=== PATIENT | female | born 2000 | race African-American/Black ===

== ENCOUNTER 2024-10-08 14:58 | Day surgery (SDC) | payer OTHER ==
[2024-10-08 15:21] VITALS: BMI 38.2
[2024-10-08 16:42] LABS: Fetal Membranes Rupture No Membranes Rupture (No Rupture)
== END 2024-10-08 18:52 | disposition home or self-care (01) ==
LOC: CSHLD/OP 14:58
PROVIDERS: ATTEND Obstetrics & Gynecology
DX: Z03.71 Encounter for suspected problem with amniotic cavity and membrane ruled out (principal); O99.013 Anemia complicating pregnancy, third trimester; O99.323 Drug use complicating pregnancy, third trimester; F12.10 Cannabis abuse, uncomplicated; Z79.899 Other long term (current) drug therapy; Z3A.37 37 weeks gestation of pregnancy
CPT/HCPCS: 84112; 99282

== ENCOUNTER 2024-10-23 05:20 | Inpatient (IN) | payer OTHER ==
[2024-10-23] MEDS ORDERED: NS w/ Oxytocin 30 units 500 ML BAG ONE (07:11)
[2024-10-23] MEDS ORDERED: fentaNYL 50 mcg/mL 1 mL Vial ONE (12:11)
[2024-10-23] MEDS ORDERED: Ondansetron PF 4 MG/2 ML Vial ONE ×2 (12:11→21:41)
[2024-10-23] MEDS ORDERED: fentaNYL/Ropivacaine Epidural 100 ML ONE (15:27)
[2024-10-23] MEDS ORDERED: Ketorolac Tromethamine 30 MG (1 mL) VIAL IVP SCH ×2 (21:00→23:59)
[2024-10-23] MEDS ORDERED: CEFAZOLIN 2 GM VIAL ONE ×2 (21:26→21:30)
[2024-10-23] MEDS ORDERED: Azithromycin 500 MG VIAL ONE (21:26)
[2024-10-23] MEDS ORDERED: Morphine PF 10 MG/10 ML VIAL ONE (21:41)
[2024-10-23] MEDS ORDERED: Dexamethasone 10 MG/ML VIAL ONE (21:41)
[2024-10-23] MEDS ORDERED: Oxytocin 10 UNITS/ML VIAL ONE ×2 (21:41→22:18)
[2024-10-23] MEDS ORDERED: PHENYLEPHRINE-NS 100 MCG/ML 10 ML SYRINGE ONE (22:03)
[2024-10-23] MEDS ORDERED: Tranexamic Acid 1,000 MG/10 ML VIAL ONE (22:20)
[2024-10-23] MEDS ORDERED: Promethazine HCl 25 MG/ML VIAL IM PRN ×2 (22:59)
[2024-10-23] MEDS ORDERED: Simethicone Chewable 80 MG TAB PO PRN (22:59)
[2024-10-23] MEDS ORDERED: diphenhydrAMINE 50 MG/ML VIAL IM/IV PRN (22:59)
[2024-10-23] MEDS ORDERED: Ondansetron PF 4 MG/2 ML Vial IVP PRN ×2 (22:59)
[2024-10-23] MEDS ORDERED: fentaNYL 50 mcg/mL 1 mL Vial SLOW IVP PRN (22:59)
[2024-10-23] MEDS ORDERED: Meperidine HCl/PF 25 MG (1 mL) VIAL IV PRN (22:59)
[2024-10-23] MEDS ORDERED: Boostrix 0.5 ML (Tdap) VIAL (>/=7 yrs of age) IM ONE (22:59)
[2024-10-23] MEDS ORDERED: Methylergonovine 0.2 MG/ML VIAL IM PRN (22:59)
[2024-10-23] MEDS ORDERED: Naloxone HCl 0.4 mg/ml Vial IV PRN (22:59)
[2024-10-23] MEDS ORDERED: Morphine 4 MG/ML VIAL SLOW IVP PRN (22:59)
[2024-10-23] MEDS ORDERED: FENTANYL 1,000 MCG/20 ML VIAL 1,000 MCG in Sodium Chloride 0.9% 30 ML IV PRN (22:59)
[2024-10-23] MEDS ORDERED: HYDROcodone/Acetaminophen 5/325 mg Tablet PO PRN (22:59)
[2024-10-23] MEDS ORDERED: CEFAZOLIN 2 GM in Sodium Chloride 0.9% 100 ML IVPB SCH (22:59)
[2024-10-23] MEDS ORDERED: Misoprostol 200 MCG TAB PR SCH (22:59)
[2024-10-23] MEDS ORDERED: Famotidine/PF 20 mg/2ml Vial SLOW IVP PRN (22:59)
[2024-10-23] MEDS ORDERED: Bicitra 30 ML UDCUP PO PRN (22:59)
[2024-10-23] MEDS ORDERED: Ondansetron PF 4 MG/2 ML Vial SLOW IVP PRN (22:59)
[2024-10-23] MEDS ORDERED: Oxytocin 30 units/NS 500 ML 500 ML IVPB SCH (22:59)
[2024-10-23] MEDS ORDERED: diphenhydrAMINE 25 MG CAP PO PRN ×2 (22:59)
[2024-10-23] MEDS ORDERED: Azithromycin 500 MG in Sodium Chloride 0.9% 250 ML 250 ML IVPB SCH (22:59)
[2024-10-23] MEDS ORDERED: Lanolin Ointment 7 GM TUBE TOP PRN (22:59)
[2024-10-23] MEDS ORDERED: FENTANYL ONE (23:45)
[2024-10-24] MEDS ORDERED: Ketorolac Tromethamine 30 MG (1 mL) VIAL ONE ×5 (01:00→21:20)
[2024-10-24] MEDS ORDERED: Ibuprofen 800 MG TAB PO SCH (06:00)
[2024-10-24] MEDS ORDERED: Prenatal Vitamin 1 TAB ONE (08:29)
[2024-10-24] MEDS ORDERED: Lidocaine 2% MPF 10 ML AMP (For Epidural Use) ONE (14:00)
[2024-10-24] MEDS ORDERED: Bupivacaine/Epinephrine 0.25% 30 ML VIAL ONE (14:00)
[2024-10-24] MEDS ORDERED: Bupivacaine HCl 0.5%/Epinephrine 1:200,000/PF 30 ml Vial ONE (14:00)
[2024-10-24] MEDS ORDERED: Ferrous Sulfate 325 MG TAB ONE (16:31)
[2024-10-24] MEDS ORDERED: [UNRECOGNIZED DRUG - REMARK] FS PRN (21:01)
[2024-10-24] MEDS ORDERED: Docusate 100 MG CAP ONE (21:20)
[2024-10-24] MEDS ORDERED: Simethicone Chewable 80 MG TAB ONE (23:00)
[2024-10-24 23:40] LABS: #Basophils 0.03 10x3/uL (0.0-0.2); #Eosinophils 0.04 10x3/uL (0.0-0.5); #Neutrophils 17.36 10x3/uL (1.5-8.4); %Basophils 0.2 % (0.0-2.0); %Eosinophils 0.2 % (0.0-6.0); %Lymphocytes 3.7 % (18.0-47.0); %Monocytes 2.1 % (0.0-10.0); %Neutrophils 92.9 % (40.0-75.0); Hematocrit 30.5 % (34.9-44.5); Hemoglobin 8.8 g/dL (12.0-15.5); Mean Corpuscular HGB CONC 28.9 g/dL (32.0-36.0); Mean Corpuscular Hemoglobin 20.2 pg (27.0-33.0); Mean Corpuscular Volume 70.1 fL (81.6-98.3); Mean Platelet Volume 8.4 fL (7.4-10.4); Platelet Count 312 10x3/uL (150-450); RBC Distribution Width 26.9 % (11.5-14.5); Red Blood Cell (RBC) Count 4.35 10x6/uL (3.90-5.03); White Blood Cell (WBC) Count 18.7 10x3/uL (3.5-10.5)
[2024-10-24 23:41] LABS: Anisocytosis MODERATE=16-30 cells (100X) (0-5/hpf)
[2024-10-24 23:42] LABS: Hypochromia SLIGHT = 6-15 cells (100X) (0-5/hpf); Microcytosis SLIGHT = 6-15 cells (100X) (0-5/hpf); Ovalocytes SLIGHT = 2-5 cells (100X) (0-1/hpf); Platelet Adequacy Comment Appears Adequate; Polychromasia SLIGHT = 2-3 cells (100X) (0-2/hpf)
[2024-10-25] MEDS: Ferrous Sulfate 325 MG TAB ONE (03:15)
[2024-10-25] MEDS: Docusate 100 MG CAP ONE (03:15)
[2024-10-25] MEDS ORDERED: Ketorolac Tromethamine 30 MG (1 mL) VIAL ONE (03:30)
[2024-10-25] MEDS ORDERED: Simethicone Chewable 80 MG TAB ONE (05:15)
[2024-10-25] MEDS ORDERED: HYDROcodone/Acetaminophen 5/325 mg Tablet ONE (06:15)
[2024-10-25] MEDS ORDERED: Ibuprofen 800 MG TAB ONE (09:40)
[2024-10-25] MEDS: Ferrous Sulfate 325 MG TAB PO SCH (09:40)
[2024-10-25] MEDS ORDERED: Ferrous Sulfate 325 MG TAB ONE (09:40)
[2024-10-25] MEDS: Prenatal Vitamin 1 TAB PO SCH (09:40)
[2024-10-25] MEDS: Docusate 100 MG CAP PO SCH (09:40)
[2024-10-25] MEDS ORDERED: Docusate 100 MG CAP ONE (09:40)
[2024-10-25] MEDS ORDERED: Prenatal Vitamin 1 TAB ONE (09:40)
[2024-10-25] MEDS: Ibuprofen 800 MG TAB ONE (13:58)
[2024-10-25] MEDS: Ibuprofen 800 MG TAB PO SCH (13:58)
[2024-10-25] MEDS: HYDROcodone/Acetaminophen 5/325 mg Tablet PO PRN (14:27)
[2024-10-25 18:09] VITALS: BP 106/58; TEMP 98.2
[2024-11-02 14:52] LABS: HBsAg Index 0.18 S/CO (0-0.99); Hep B Surf Ag - L&D NonReactive S/CO (NonReactive); Syphilis Antibody Nonreactive (Nonreactive); Syphilis Antibody Index 0.15 S/CO (<1.00 Non-Reactive)
[2024-11-02 14:53] LABS: Hemoglobin 8.9 g/dL (12.0-15.5); Red Blood Cell (RBC) Count 4.36 10x6/uL (3.90-5.03); White Blood Cell (WBC) Count 8.4 10x3/uL (3.5-10.5)
[2024-11-02 14:54] LABS: Mean Corpuscular HGB CONC 29.7 g/dL (32.0-36.0); Mean Corpuscular Hemoglobin 20.4 pg (27.0-33.0); Mean Corpuscular Volume 68.8 fL (81.6-98.3); Mean Platelet Volume 8.6 fL (7.4-10.4); Platelet Count 334 10x3/uL (130-400); RBC Distribution Width 26.5 % (11.5-14.5)
== END 2024-10-25 17:55 | disposition home or self-care (01) | DRG 788 ==
LOC: CSHLD 05:20 → CSHPP 10-24 01:40
PROVIDERS: ADMIT Obstetrics & Gynecology; ATTEND Obstetrics & Gynecology
PROC: 10D00Z1 Extraction of Products of Conception, Low, Open Approach (ICD-10-PCS; principal; 2024-10-23)
DX: O32.4XX0 Maternal care for high head at term, not applicable or unspecified (principal); Z37.0 Single live birth; Z3A.39 39 weeks gestation of pregnancy; Z79.899 Other long term (current) drug therapy
CPT/HCPCS: 51702; 85025; 96365; 96366; J1100; J1756; J1885; J2274; J2405; J2590; J3010; J7050